=== PATIENT | female | born 1975 | race Caucasian/White ===

== ENCOUNTER → 2021-08-14 | Outpatient (CLI) | payer OTHER | LOC: COL.RAD 09:41 | DX: M47.816 Spondylosis without myelopathy or radiculopathy, lumbar region (principal); M51.26 Other intervertebral disc displacement, lumbar region; M48.07 Spinal stenosis, lumbosacral region; K57.30 Diverticulosis of large intestine without perforation or abscess without bleeding ==

== ENCOUNTER → 2021-08-24 | Outpatient (RCR) | payer OTHER | END | disposition still patient (30) | LOC: WSPT | DX: S29.012A Strain of muscle and tendon of back wall of thorax, initial encounter (principal) ==

== ENCOUNTER → 2021-08-27 | Outpatient (CLI) | payer OTHER ==
[2021-08-27 16:28] LABS: BASO % 0.3 % (0.0-2.0); EOS % 0.1 % (0.0-4.0); GRAN # 14.1 K/mm3 (1.4-6.5); GRAN % 89.6 % (42.2-75.2); HEMATOCRIT 43.4 % (37.0-47.0); HEMOGLOBIN 14.3 g/dl (12.5-16.0); LYMPH % 6.2 % (20.0-51.0); MEAN CELL VOLUME 93 fl (80.0-100.0); MEAN CORPUSCULAR HEMOGLOBIN 31 pg (27-31); MEAN CORPUSCULAR HGB CONC 33 g/dl (33.0-37.0); MEAN PLATELET VOLUME 10.3 fl (7.4-10.4); MONO # 0.4 K/mm3 (0.1-0.6); MONO % 2.5 % (1.7-9.3); PLATELET COUNT 306 K/mm3 (130-400); RED BLOOD COUNT 4.67 M/mm3 (4.10-5.30); REDCELL DISTRIBUTION WIDTH-CV 12.6 % (11.5-14.5)
[2021-08-27 16:35] LABS: ALBUMIN 4.3 gm/dL (3.5-5.0); BILIRUBIN,TOTAL 0.6 mg/dL (0.2-1.2); CREATININE, serum 0.94 mg/dL (0.57-1.11); MAGNESIUM 1.8 mg/dL (1.6-2.6); POTASSIUM 4.4 mmol/L (3.5-4.5); TOTAL PROTEIN 7.4 gm/dL (6.2-8.1)
[2021-08-27 16:56] LABS: THYROID STIMULATING HORMONE 0.669 uIU/mL (0.350-4.940)
== END ==
LOC: COL.LAB 15:38
PROVIDERS: Internal Medicine
DX: R25.2 Cramp and spasm (principal)

== ENCOUNTER 2021-09-17 08:45 | Outpatient (RCR) | payer OTHER | END 2021-09-21 | disposition home or self-care (01) | LOC: WSPT | DX: S29.012A Strain of muscle and tendon of back wall of thorax, initial encounter (principal) ==

== ENCOUNTER → 2021-09-22 | Outpatient (CLI) | payer OTHER | LOC: COL.LAB 11:41 | DX: M65.80 Other synovitis and tenosynovitis, unspecified site (principal) ==

== ENCOUNTER → 2021-10-06 | Outpatient (CLI) | payer OTHER | LOC: MHCPAIN 13:50 | DX: M79.18 Myalgia, other site (principal); M54.31 Sciatica, right side | CPT/HCPCS: J3301 ==

== ENCOUNTER → 2021-10-22 | Outpatient (RCR) | payer OTHER | END | disposition still patient (30) | LOC: WSPT | DX: S29.012A Strain of muscle and tendon of back wall of thorax, initial encounter (principal) ==

== ENCOUNTER → 2021-11-04 | Outpatient (CLI) | payer OTHER | LOC: MHCPAIN 15:56 | DX: M54.31 Sciatica, right side (principal); M79.602 Pain in left arm; M54.6 Pain in thoracic spine; R20.0 Anesthesia of skin ==

== ENCOUNTER → 2021-11-26 | Outpatient (CLI) | payer OTHER | END | disposition still patient (30) | LOC: COL.RAD 11:39 | DX: M47.812 Spondylosis without myelopathy or radiculopathy, cervical region (principal); M48.02 Spinal stenosis, cervical region | CPT/HCPCS: A9575 ==

== ENCOUNTER → 2021-11-27 | Outpatient (CLI) | payer OTHER | LOC: COL.RAD 09:00 | DX: M51.27 Other intervertebral disc displacement, lumbosacral region (principal); M47.816 Spondylosis without myelopathy or radiculopathy, lumbar region | CPT/HCPCS: A9575 ==

== ENCOUNTER → 2021-11-30 | Outpatient (CLI) | payer OTHER | LOC: MHCPAIN 11:40 | DX: R90.82 White matter disease, unspecified (principal); R10.2 Pelvic and perineal pain; M54.31 Sciatica, right side; M50.30 Other cervical disc degeneration, unspecified cervical region; M54.6 Pain in thoracic spine | CPT/HCPCS: G0463 ==

== ENCOUNTER → 2021-12-07 | Outpatient (CLI) | payer OTHER ==
[2021-12-07 10:14] LABS: BASO # 0.1 K/mm3 (0.0-0.2); BASO % 1.1 % (0.0-2.0); EOS # 0.1 K/mm3 (0.0-0.7); EOS % 1.5 % (0.0-4.0); GRAN # 3.2 K/mm3 (1.4-6.5); GRAN % 47.7 % (42.2-75.2); HEMATOCRIT 40.1 % (37.0-47.0); HEMOGLOBIN 12.9 g/dl (12.5-16.0); LYMPH # 2.4 K/mm3 (1.2-3.4); LYMPH % 36.5 % (20.0-51.0); MEAN CELL VOLUME 97 fl (80.0-100.0); MEAN CORPUSCULAR HEMOGLOBIN 31 pg (27-31); MEAN CORPUSCULAR HGB CONC 32 g/dl (33.0-37.0); MEAN PLATELET VOLUME 10.9 fl (7.4-10.4); MONO # 0.8 K/mm3 (0.1-0.6); MONO % 12.7 % (1.7-9.3); PLATELET COUNT 225 K/mm3 (130-400); RED BLOOD COUNT 4.14 M/mm3 (4.10-5.30); REDCELL DISTRIBUTION WIDTH-CV 12.3 % (11.5-14.5)
[2021-12-07 10:32] LABS: ALBUMIN 4.1 gm/dL (3.5-5.0); BILIRUBIN,TOTAL 0.3 mg/dL (0.2-1.2); CALCIUM 9.3 mg/dL (8.4-10.2); CREATININE, serum 0.8 mg/dL (0.57-1.11); POTASSIUM 4.2 mmol/L (3.5-4.5); TOTAL PROTEIN 6.8 gm/dL (6.2-8.1)
== END ==
LOC: COL.LAB 09:46
PROVIDERS: Internal Medicine
DX: K90.9 Intestinal malabsorption, unspecified (principal); F41.8 Other specified anxiety disorders

== ENCOUNTER → 2022-02-02 | Outpatient (CLI) | payer OTHER | LOC: MHCPAIN 16:01 | DX: R90.82 White matter disease, unspecified (principal); R10.2 Pelvic and perineal pain; M54.31 Sciatica, right side; M54.30 Sciatica, unspecified side; M79.602 Pain in left arm; M54.6 Pain in thoracic spine ==

== ENCOUNTER 2022-02-12 11:06 | Outpatient (RCR) | payer OTHER | END 2022-02-21 | disposition home or self-care (01) | LOC: MKS.ESL.PT | DX: M54.31 Sciatica, right side (principal) ==